=== PATIENT | female | born 1975 | race Caucasian/White ===

== ENCOUNTER 2019-10-09 08:02 | Emergency (ER) | payer OTHER ==
[~2019-10-09] VITALS: Ht 165.1 cm; Wt 110.7 kg
[~2019-10-09 08:02] MED LIST: ASPIR 8181 MG PO; ATORVASTATIN CA40 MG PO; BRILINTA90 MG PO; COREG6.25 MG PO; EFFIENT10 MG PO; LEXAPRO 10 MG T10 MG PO; LISINOPRIL2.5 MG PO; NITROGLYCERIN0.4 MG SUBLING; PLAVIX 75 MG TA75 M1 PO; TYLENOL325 MG PO; WELLBUTRIN SR150 MG PO
[2019-10-09] MEDS ORDERED: PROTONIX40 M2 PO (08:15)
[2019-10-09] MEDS ORDERED: VITAMIN D250 MCG PO (08:16)
[2019-10-09 08:36] LABS: INFLUENZA A ANTIGEN Negative (Negative); INFLUENZA B ANTIGEN Negative (Negative)
[2019-10-09 08:53] VITALS: BP 148/85
== END 2019-10-09 08:53 | disposition home or self-care (01) ==
LOC: M.ERS 08:02
PROVIDERS: Family Medicine
DX: B34.9 Viral infection, unspecified (principal); R19.7 Diarrhea, unspecified; R06.02 Shortness of breath; F41.9 Anxiety disorder, unspecified; F32.9 Major depressive disorder, single episode, unspecified; I10 Essential (primary) hypertension; E78.00 Pure hypercholesterolemia, unspecified; Z88.8 Allergy status to other drugs, medicaments and biological substances; Z79.899 Other long term (current) drug therapy; I25.2 Old myocardial infarction; Z98.51 Tubal ligation status